=== PATIENT | male | born 1975 | race Caucasian/White ===

== ENCOUNTER 2022-11-11 22:34 | Emergency (ER) | payer OTHER | END 2022-11-11 23:08 | disposition left against medical advice (07) | LOC: ED 22:34 | DX: Z53.21 Procedure and treatment not carried out due to patient leaving prior to being seen by health care provider (principal) ==

== ENCOUNTER 2022-11-12 09:51 | Emergency (ER) | payer OTHER ==
--- NOTE | 2022-11-12 10:11 | ERPHSYRPT ---
- History of Present Illness Time Seen by Provider: 11/12/22 10:10 Source: patient, family Exam Limitations: no limitations Patient Subjective Stated Complaint: Left shoulder injury Triage Nursing Assessment: Patient ambulated back to ED and transferred self to bed. Patient A+O X3. Patient's skin pink, warm and dry. Patient complains of left shoulder pain 1/10 when not moving. Patient states he was drunk last night and fell down landing left shoulder on concrete. Patient states pain is 10/10 when moving. Occurred: yesterday Method of Injury: fell Quality: constant Severity of Pain-Max: moderate Severity of Pain-Current: moderate Extremities Pain Location: shoulder: left (collar bone) Modifying Factors: Improves With: immobilization, rest. Worsens With: movement Associated Symptoms: none, No chest discomfort, No neck pain Allergies/Adverse Reactions: cefaclor [From Ceclor] Allergy (Verified 11/12/22 09:55) Hx Influenza Vaccination/Date Given: No Hx Pneumococcal Vaccination/Date Given: No Immunizations Up to Date: Yes Travel Risk - International Travel Have you traveled outside of the country in past 3 weeks: No - Coronavirus Screening Are you exhibiting any of the following symptoms?: No Close contact with a COVID-19 positive Pt in past 14-21 Days: No - Vaccine Status Have you recieved a Covid-19 vaccination: No - Review of Systems Constitutional: No Symptoms Eyes: No Symptoms Ears, Nose, & Throat: No Symptoms Respiratory: No Symptoms Cardiac: No Symptoms Abdominal/Gastrointestinal: No Symptoms Genitourinary Symptoms: No Symptoms Musculoskeletal: No Symptoms, Other (left clavicle only) Skin: No Symptoms Neurological: No Symptoms Psychological: No Symptoms Endocrine: No Symptoms Hematologic/Lymphatic: No Symptoms Immunological/Allergic: No Symptoms All Other Systems: Reviewed and Negative - Past Medical History Pertinent Past Medical History: No Neurological History: No Pertinent History, TIA ENT History: No Pertinent History Cardiac History: Hypertension Respiratory History: No Pertinent History Endocrine Medical History: No Pertinent History Musculoskeletal History: No Pertinent History GI Medical History: No Pertinent History History: No Pertinent History Psycho-Social History: No Pertinent History Male Reproductive Disorders: No Pertinent History - Past Surgical History Past Surgical History: Yes Cardiac: No Pertinent History Respiratory: No Pertinent History Gastrointestinal: No Pertinent History Genitourinary: No Pertinent History Musculoskeletal: No Pertinent History Male Surgical History: No Pertinent History Other Surgical History: sean eye surgery 2010 - Social History Smoking Status: Never smoker Exposure to second hand smoke: Yes Drug Use: none Patient Lives Alone: No Significant Family History: no pertinent family hx - Nursing Vital Signs Nursing Vital Signs: Initial Vital Signs Temperature 99.0 F 11/12/22 09:57 Pulse Rate 86 11/12/22 09:57 Respiratory Rate 20 11/12/22 09:57 Blood Pressure 123/80 11/12/22 09:57 O2 Sat by Pulse Oximetry 100 11/12/22 09:57 Pain Scale Pain Intensity 1 - Physical Exam General Appearance: mild distress Eyes, Ears, Nose, Throat Exam: normal ENT inspection Neck Exam: normal inspection, non-tender, supple, full range of motion Cardiovascular/Respiratory Exam: chest non-tender, normal breath sounds, regular rate/rhythm Abdominal Exam: non-tender, soft Back Exam: normal inspection, normal range of motion Shoulder Exam: bone tenderness (left clavicle), deformity (left clavicle), limited ROM, soft tissue tenderness, swelling Elbow/Forearm Exam: normal inspection Wrist Exam: normal inspection Hand Exam: normal inspection Neuro/Tendon Exam: normal sensation, normal motor functions Mental Status Exam: alert, oriented x 3, cooperative Skin Exam: normal color, warm SpO2 Interpretation: normal SpO2: 100 O2 Delivery: Room Air Procedures - Splinting Time of Procedure: 11:00 Location of Splint: Left Type of Splint: Other Splint Applied By: ED Nurse Pre-Proc Neuro Vasc Exam: normal Post-Proc Neuro Vasc Exam: neurovascular intact - Course Nursing assessment & vital signs reviewed: Yes - Radiology Exams Left Clavicle X-ray Interpretation: Interpreted by me, Displaced Fracture Ordered Tests: Active Orders 24 hr Category Date Time Status CLAVICLE Stat Exams 11/12/22 10:11 Taken SHOULDER Stat Exams 11/12/22 10:12 Taken Medication Summary Generic Name Dose Route Start Last Admin Trade Name Freq PRN Reason Stop Dose Admin Hydrocodone Bitart/Acetaminophen 2 tab 11/12/22 11:15 Hydrocodone/Apap 5/325 1 Tab Tablet PO 11/12/22 11:16 SENT HOME W/ PATIENT ONE - Progress Progress: improved Progress Note: Left clavicle fx, closed, displaced, placed clavicle strap/sling, Rx norco, see ortho, off work. 11/12/22 11:05 Counseled pt/family regarding: diagnosis, need for follow-up, rad results (See orthopedic clinic.) Medical Desision Making - Independent Historian Additional History obtained from: Spouse - Diagnostic Testing Radiological Interpretation: Interpreted by me - Risk of complications Minimal Risk: Minimal risk of morbidity - Departure Departure Disposition: Home Clinical Impression: Closed left clavicular fracture Qualifiers: Encounter type: initial encounter Clavicle location: shaft Fracture alignment: displaced Qualified Code(s): S42.022A - Displaced fracture of shaft of left clavicle, initial encounter for closed fracture Condition: Stable Critical Care Time: No Referrals: DOCTOR,NO FAMILY [Primary Care Provider] - Follow up/PCP as directed Instructions: Shoulder Fracture (DC) Additional Instructions: Broken collar bone, need to wear splint/sling, ibuprofen OK, norco if needed, see orthopedic clinic, 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 Forms: Ortho Referral, Work/School Release Form
[2022-11-12] MEDS ORDERED: NORCO 5/325 MG PO ONE (11:15)
[2022-11-12] MEDS ORDERED: NORCO 5/325 MG ONE (11:17)
[2022-11-12 11:30] VITALS: BP 132/77; PULSE 81; O2SAT 99
--- NOTE | 2022-11-12 19:15 | XRAY ---
Indication: Pain following fall. Comparison: None 3 view left shoulder demonstrates comminuted moderately angulated distal clavicle fracture. No other bony, articular, or soft tissue abnormalities.
--- NOTE | 2022-11-12 19:17 | XRAY ---
Indication: Pain following fall. Comparison: None 2 view left clavicle demonstrates comminuted moderately angulated distal clavicle fracture. No other bony, articular, or soft tissue abnormalities.
== END 2022-11-12 11:28 | disposition home or self-care (01) ==
LOC: ED 09:51
DX: S42.022A Displaced fracture of shaft of left clavicle, initial encounter for closed fracture (principal); W19.XXXA Unspecified fall, initial encounter; I10 Essential (primary) hypertension; Z28.310 Unvaccinated for COVID-19; Z79.891 Long term (current) use of opiate analgesic
CPT/HCPCS: 73000; 73030; 99283; L0120; A9270-GY

== ENCOUNTER 2023-03-01 16:55 | Emergency (ER) | payer OTHER ==
[2023-03-01 17:15] VITALS: RESP 18; TEMP 98.5
[2023-03-01] MEDS ORDERED: Adacel Vial IM ONE ×2 (17:36→17:44)
--- NOTE | 2023-03-01 18:11 | ERPHSYRPT ---
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 There was bleeding initially but is stopped prior to arrival. Mild to moderate pain. No tooth ache or broken tooth. Timing/Duration: today Quality: painful Severity: mild Location: face Possible Causes: other Associated Symptoms: denies symptoms Allergies/Adverse Reactions: cefaclor [From Ceclor] Allergy (Verified 03/01/23 17:04) Hives Home Medications: No Reportable Medications [No Reported Medications] 03/01/23 [History] Hx Tetanus, Diphtheria Vaccination/Date Given: No Hx Influenza Vaccination/Date Given: No Hx Pneumococcal Vaccination/Date Given: No Travel Risk - International Travel Have you traveled outside of the country in past 3 weeks: No - Coronavirus Screening Are you exhibiting any of the following symptoms?: No Close contact with a COVID-19 positive Pt in past 14-21 Days: No - Vaccine Status Have you recieved a Covid-19 vaccination: No - Review of Systems Constitutional: No Symptoms Eyes: No Symptoms Ears, Nose, & Throat: Mouth Pain, Mouth Swelling Respiratory: No Symptoms Cardiac: No Symptoms Abdominal/Gastrointestinal: No Symptoms Musculoskeletal: Injury Skin: Skin Lesions Psychological: No Symptoms - Past Medical History Pertinent Past Medical History: Yes Neurological History: No Pertinent History, TIA ENT History: No Pertinent History Cardiac History: Hypertension Respiratory History: No Pertinent History Endocrine Medical History: No Pertinent History Musculoskeletal History: No Pertinent History GI Medical History: No Pertinent History History: No Pertinent History Psycho-Social History: No Pertinent History Male Reproductive Disorders: No Pertinent History - Past Surgical History Past Surgical History: Yes Cardiac: No Pertinent History Respiratory: No Pertinent History Gastrointestinal: No Pertinent History Genitourinary: No Pertinent History Musculoskeletal: Orthopedic Surgery Male Surgical History: No Pertinent History Other Surgical History: sean eye surgery 2010, left collar bone surgery - Social History Smoking Status: Never smoker Exposure to second hand smoke: No Drug Use: none Patient Lives Alone: No Significant Family History: no pertinent family hx - Nursing Vital Signs Nursing Vital Signs: Initial Vital Signs Temperature 98.5 F 03/01/23 17:04 Pulse Rate 62 03/01/23 17:04 Respiratory Rate 18 03/01/23 17:04 Blood Pressure 146/79 03/01/23 17:04 O2 Sat by Pulse Oximetry 98 03/01/23 17:04 Pain Scale Pain Intensity 2 - Physical Exam General Appearance: no apparent distress, alert Eye Exam: PERRL/EOMI Ears, Nose, Throat Exam: TMs normal, pharynx normal, moist mucous membranes, other (0.25 cm external laceration below the vermilion border on the right lower lip, through and through with 1 cm laceration on the inner side. No active bleeding or spurting.) Neck Exam: normal inspection, non-tender, supple, full range of motion Respiratory Exam: normal breath sounds, accessory muscle use Cardiovascular Exam: regular rate/rhythm, normal heart sounds Back Exam: normal inspection Extremity Exam: normal inspection Neurologic Exam: alert, oriented x 3, manager financial systems II-XII nml as tested Skin Exam: normal color SpO2 Interpretation: normal SpO2: 98 O2 Delivery: Room Air Procedures - Laceration/Wound Repair Right Lip Time of Procedure: 18:00 Wound Location: Right Wound Length (cm): 0.25 Wound's Depth, Shape: into muscle, irregular Wound Explored: clean Irrigated: Yes Hibiclens Prep: Yes Anesthesia: 1% Lidocaine Volume Anesthetic (ccs): 2 Wound Repaired With: sutures Suture Size/Type: 5-0 Number of Sutures: 1 Splint Applied?: No Sling Applied?: No Ordered Tests: Medication Summary Discontinued Medications Generic Name Dose Route Start Last Admin Trade Name Freq PRN Reason Stop Dose Admin Diphtheria/Tetanus/Acell Pertussis 0.5 ml 03/01/23 17:36 03/01/23 17:45 Tdap --Diph,Pertuss(Acell),Tet Vac/Pf 0.5 Ml Vial IM 03/01/23 17:37 0.5 ml .ONCE ONE Administration Diphtheria/Tetanus/Acell Pertussis Confirm 07/27/23 17:44 Tdap --Diph,Pertuss(Acell),Tet Vac/Pf 0.5 Ml Vial Administered 03/01/23 17:45 Dose 0.5 ml IM .STK-MED ONE - Progress Progress: improved Progress Note: 03/01/23 18:08 47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 It on the face with a laceration. Bleeding stopped prior to arrival. On exam has external 0.25 cm laceration and internal 1 cm. No active bleeding or spurting. Laceration is repaired externally. Do not think needs to repair internally. Tetanus is updated. Recommended Tylenol/ibuprofen and outpatient follow-up. Counseled pt/family regarding: diagnosis, need for follow-up - Departure Departure Disposition: Home Clinical Impression: Lip laceration Condition: Stable Critical Care Time: No Referrals: DOCTOR,NO FAMILY [Primary Care Provider] - Follow up/PCP as directed (Follow-up with your primary care physician for reevaluation in 2 to 3 days. Suture removal in 5 days.) Instructions: Laceration Repair With Stitches (DC) Additional Instructions: Intermittent ice application. Tylenol/ibuprofen as needed. Follow-up with primary care for reevaluation. Suture removal in 5 days. Return to ER for increasing pain swelling redness discharge/fever chills etc.
[2023-03-01 18:22] VITALS: BP 145/82; PULSE 67; O2SAT 97
== END 2023-03-01 18:22 | disposition home or self-care (01) ==
LOC: ED 16:55
DX: S01.511A Laceration without foreign body of lip, initial encounter (principal); W20.8XXA Other cause of strike by thrown, projected or falling object, initial encounter; Y99.0 Civilian activity done for income or pay; I10 Essential (primary) hypertension; Z28.310 Unvaccinated for COVID-19; Z23 Encounter for immunization
CPT/HCPCS: 12011; 90471; 90715; 99282